=== PATIENT | male | born 1960 | race Caucasian/White ===

== ENCOUNTER 2020-09-23 18:25 | Emergency (ER) | payer OTHER, SELFPAY ==
--- NOTE | ~2020-09-23 | CT_ITS ---
EXAMINATION: CT brain wo con INDICATION: Left facial numbness COMPARISON: None TECHNIQUE: Standard unenhanced head CT. The dose-length product (DLP) was 605.33 mGy-cm. The mA was a djusted according to patient size. Iterative reconstruction technique was employed. FINDINGS: There is no intracranial hemorrhage, acute infarction, or abnormal mass lesion. The ventric les are normal. There is no abnormal mass effect or midline shift. The vazquez-white matter differentiat ion is normal. The basal cisterns are patent. The orbits are normal. The paranasal sinuses, mastoids and calvarium are normal. IMPRESSION: 1. No acute intracranial abnormality. Reviewed, dictated and finalized at location A.
--- NOTE | ~2020-09-23 | XR_ITS ---
EXAMINATION: XR chest 1V INDICATION: Left-sided facial numbness TECHNIQUE: AP view of the chest is obtained. COMPARISON: 11/12/2016 FINDINGS: The lungs are free of acute opacities. There is no pleural effusion or pneumothorax. The ca rdiomediastinal silhouette is normal. The visualized osseous structures are unremarkable. IMPRESSION: 1. No acute cardiopulmonary abnormality. Reviewed, dictated and finalized at location A.
[2020-09-23 18:39] VITALS: BP 190/86; PULSE 77; RESP 16; TEMP 36.8; O2SAT 97
--- NOTE | 2020-09-23 18:44 | ECG_ITS ---
Measurements Intervals [place] Rate: 71 P: 39 WV: 174 QRS: -9 QRSD: 100 T: 31 QT: 369 QTc: 403 Interpretive Statements SINUS RHYTHM DELAYED PRECORDIAL R/S TRANSITION BASELINE ARTIFACT- II, AVF, V3-V6 BORDERLINE ECG Electronically Signed On 09-24-2020 6:21:[address] Mendoza D[address]O.
--- NOTE | 2020-09-23 18:49 | PC.NURSE ---
Patient to CT at this time.
[2020-09-23 19:33] LABS: Basophils Percent Auto 0.3 % (0.2-1.2); Eosinophils Absolute Auto 0.4 K/mm3 (0-0.3); Hematocrit 46.1 % (42.0-52.0); Hemoglobin 15.6 g/dL (14.0-18.0); Immature Granulocyte Absolute 0.04 K/mm3 (0.00-0.031); Immature Granulocyte Percent A 0.4 % (0-0.5); Lymphocytes Absolute Auto 1.92 K/mm3 (0.9-3.2); Lymphocytes Percent Auto 18.9 % (18.3-44.2); Mean Corpuscular HGB Conc 33.8 g/dl (32-36); Mean Corpuscular Hemoglobin 29.3 pg (26-34); Mean Corpuscular Volume 86.5 fl (80-100); Mean Platelet Volume 9.8 fl (7.4-10.4); Monocytes Absolute Auto 0.6 K/mm3 (0.1-0.6); Monocytes Percent Auto 5.6 % (2.6-8.5); Neutrophils Absolute Auto 7.2 K/mm3 (1.3-6.7); Neutrophils Percent Auto 70.8 % (45.5-73.1); Platelet Count Result 231 k/mm3 (150-375); Red Blood Count 5.33 M/mm3 (4.6-6.20); White Blood Count 10.2 K/mm3 (4.5-10.0)
[2020-09-23 19:43] LABS: Alanine Aminotransferase 52 U/L (4-50); Albumin Level 4.3 g/dL (3.5-5.1); Alkaline Phosphatase 55 U/L (38-126); Anion Gap 7 mmol/L (8-16); Aspartate Amino Transferase 45 U/L (17-59); Bilirubin,Total 0.5 mg/dL (0.2-1.3); Blood Urea Nitrogen 14 mg/dL (9-20); Calcium 9.5 mg/dL (8.4-10.2); Carbon Dioxide 29 mmol/L (22-30); Chloride 103 mmol/L (98-107); Estimated CRCL calculation 53 ml/min; Estimated Glomerular Filt Rate 57; Glucose 125 mg/dL (75-110); Partial Thromboplastin Time 24.6 SECONDS (22.3-36.8); Potassium 3.8 mmol/L (3.4-5.0); Prothrombin Time 13.4 Seconds (11.1-14.7); Sodium 139 mmol/L (137-145)
[2020-09-23 19:54] LABS: Troponin I < 0.012 ng/mL (0.000-0.034)
[2020-09-23 19:56] VITALS: BP 142/81; PULSE 82; RESP 16; TEMP 36.6; O2SAT 97
[2020-09-23 21:52] VITALS: BP 139/79; PULSE 79; RESP 18; TEMP 36.6; O2SAT 97
--- NOTE | 2020-09-23 22:00 | ED.GENADULT ---
HPI - General Adult General Chief complaint: Neuro Symptoms/Deficit Stated complaint: left sided facial numbness Time Seen by Provider: 09/23/20 18:29 History of Present Illness HPI narrative: Patient is a 60-year-old male who presents ER with left facial tingling. Onset 4 to 5 months prior to arrival. Has had this 2 times over the last week. Typically does not last longer than 15 minutes. Today it lasted longer. No facial droop or slurred speech. No affected extremities. Reports he has been under increased stress lately due to the loss of a family member. This makes him tearful and anxious. Denies chest pain or chest pressure. No history of previous CVA. Reports he has had some intermittent ringing in his right ear that he thinks is related to allergies as it seems to improve when he takes allergy medication. Related Data Home Medications Medication Instructions Recorded Confirmed atorvastatin 20 mg tablet 20 mg PO DAILY 05/10/20 fluticasone furoate 50 INHALATION 05/10/20 mcg/actuation blister powder for inhalation aspirin See Rx Instructions .ROUTE .COMPLEX 09/23/20 lorazepam 09/23/20 montelukast mg 09/23/20 Allergies Allergy/AdvReac Type Severity Reaction Status Date / Time No Known Allergies Allergy Unknown Verified 09/23/20 18:46 Review of Systems Review of Systems: All systems reviewed & are unremarkable except as noted in HPI and below Constitutional: Constitutional: Denies chills, Denies fever(s) and Denies weakness ENT: Denies nasal congestion and Denies sore throat Cardiovascular: Cardiovascular: Denies chest pain, Denies rapid heart rate and Denies radiating jaw, neck or arm pain PMFSH Past Medical History Medical History (Updated 09/23/20 @ 22:06 by Monty Woo MD) Anxiety Hypercholesterolemia Meniere disease Tinnitus of right ear Surgical History Surgical History (Updated 09/23/20 @ 22:03 by Monty Woo MD) No pertinent past surgical history Social History Social History (Updated 05/10/20 @ 15:22 by Nerissa Tyler CMA) Smoking status: Never smoker Second hand tobacco smoke exposure: Yes Alcohol intake: current Substance use: never Substance use type: does not use Exam Narrative: Exam Narrative: GENERAL: Well-appearing, well-nourished, and in no acute distress. HEAD: Normocephalic, atraumatic. EYES: PERRL and EOMI. ENT: Mucous membranes moist. TMs normal bilaterally. CHEST: Clear to auscultation. No respiratory distress. HEART: Regular rate and rhythm. Normal peripheral pulses. ABDOMEN: Soft, nontender, nondistendeds. EXTREMITIES: Normal range of motion. No edema. SKIN: Warm, dry, no rash. NEURO: No focal deficits. Upper or lower extremity drift. No reproducible sensory deficit to the face or extremities. No expressive aphasia or dysarthria. Normal hyca-hk-guoh and azjwsb-re-jqoi testing. Alert and oriented x3. PSYCH: Normal mood and affect but cries when talked about his brother. Course Course Emergency Course: No discernible deficits on exam. Reports tingling went away shortly after arrival. May be related transiently elevated blood pressures. Recommend follow-up with PCP and daily aspirin. Vital Signs Vital signs: Vital Signs Temperature 98.2 F 09/23/20 18:39 Pulse Rate 77 09/23/20 18:39 Respiratory Rate 16 09/23/20 18:39 Blood Pressure 190/86 H 09/23/20 18:39 Pulse Oximetry 97 09/23/20 18:39 Temperature 97.9 F 09/23/20 21:52 Pulse Rate 79 09/23/20 21:52 Respiratory Rate 18 09/23/20 21:52 Blood Pressure 139/79 09/23/20 21:52 Pulse Oximetry 97 09/23/20 21:52 Medical Decision Making Vital Signs Vital Signs: Vital Signs Temperature 98.2 F 09/23/20 18:39 Pulse Rate 77 09/23/20 18:39 Respiratory Rate 16 09/23/20 18:39 Blood Pressure 190/86 H 09/23/20 18:39 Pulse Oximetry 97 09/23/20 18:39 Temperature 97.9 F 09/23/20 21:52 Pulse Rate 79 05/
== END 2020-09-23 22:14 | disposition home or self-care (01) ==
PROVIDERS: Emergency Provider Emergency Medicine; PCP Internal Medicine
DX: R20.2 Paresthesia of skin (principal); E78.00 Pure hypercholesterolemia, unspecified; H81.09 Meniere's disease, unspecified ear; Z79.82 Long term (current) use of aspirin; F41.9 Anxiety disorder, unspecified
CPT/HCPCS: 36415; 70450; 71045; 80053; 84484; 85025; 85610; 85730; 93005; 99284

== ENCOUNTER 2024-02-27 02:41 | Emergency (ER) | payer BC, SELFPAY ==
--- NOTE | ~2024-02-27 | XR_ITS ---
EXAMINATION: XR chest 2V DATE: 02/27/2024 03:22 INDICATION: Epigastric abdominal pain. TECHNIQUE: Frontal and lateral views of the chest were obtained. COMPARISON: Chest single view 09/23/2020 FINDINGS: There is no pneumonia, pleural effusion, or pneumothorax. The heart size is normal. IMPRESSION: 1. No acute cardiopulmonary disease. Reviewed, dictated and finalized at location A.
--- NOTE | 2024-02-27 02:43 | ECG_ITS ---
Test Date: 2024-02-27 02:47:05 Measurements Intervals [place] Rate: 79 P: 42 [place]: 172 QRS: -18 QRSD: 90 T: 61 QT: 365 QTc: 419 Interpretive Statements SINUS RHYTHM No previous ECG available for comparison Electronically Signed On 02-27-2024 15:32:39 CDT by Addy Sood M.D.
[2024-02-27 02:52] VITALS: BP 178/80; PULSE 84; RESP 16; TEMP 36.7; O2SAT 99
[2024-02-27] MEDS: FAMOTIDINE 20 MG TABLET PO (03:03)
[2024-02-27 03:13] LABS: Basophils Percent Auto 0.4 % (0.2-1.2); Eosinophils Absolute Auto 0.4 K/mm3 (0-0.3); Eosinophils Percent Auto 4.6 % (0-4.4); Hematocrit 43.4 % (42.0-52.0); Hemoglobin 14.9 g/dL (14.0-18.0); Immature Granulocyte Absolute 0.02 K/mm3 (0.00-0.031); Immature Granulocyte Percent A 0.3 % (0-0.5); Lymphocytes Absolute Auto 1.77 K/mm3 (0.9-3.2); Lymphocytes Percent Auto 23.2 % (18.3-44.2); Mean Corpuscular HGB Conc 34.3 g/dl (32-36); Mean Corpuscular Hemoglobin 29.6 pg (26-34); Mean Corpuscular Volume 86.3 fl (80-100); Mean Platelet Volume 10.1 fl (7.4-10.4); Monocytes Absolute Auto 0.6 K/mm3 (0.1-0.6); Monocytes Percent Auto 7.7 % (2.6-8.5); Neutrophils Absolute Auto 4.9 K/mm3 (1.3-6.7); Neutrophils Percent Auto 63.8 % (45.5-73.1); Platelet Count Result 232 k/mm3 (150-375); Red Blood Count 5.03 M/mm3 (4.6-6.20); Red Cell Distribution Width 13.3 % (11.5-14.5); White Blood Count 7.6 K/mm3 (4.5-10.0)
[2024-02-27 03:28] LABS: Alanine Aminotransferase 45 U/L (6-50); Alkaline Phosphatase 61 U/L (38-126); Anion Gap 5 mmol/L (4-12); Aspartate Amino Transferase 37 U/L (17-59); Bilirubin,Total 0.5 mg/dL (0.2-1.3); Blood Urea Nitrogen 13 mg/dL (9-20); Calcium 8.6 mg/dL (8.4-10.2); Carbon Dioxide 28 mmol/L (22-30); Chloride 104 mmol/L (98-107); Estimated CRCL calculation 69 ml/min; Estimated Glomerular Filt Rate > 60; Glucose 128 mg/dL (65-110); Lipase 154 U/L (23-300); Potassium 3.6 mmol/L (3.4-5.0); Sodium 137 mmol/L (137-145)
[2024-02-27 03:40] LABS: Troponin I < 0.012 ng/mL (0.000-0.034)
--- NOTE | 2024-02-27 03:53 | ED.ABDPAIN ---
HPI - Abdominal Pain General Chief Complaint: Abdominal Pain Stated Complaint: anxiety/LUQ discomfort Time Seen by Provider: 02/27/24 02:53 Source: patient Mode of arrival: ambulatory Limitations: no limitations History of Present Illness HPI narrative: This is a 63-year-old male, with history of anxiety, who presents emergency department complaining of epigastric abdominal pain beginning approximately 4 hours prior to arrival. The patient states he has been under increased stress lately related to work as well as the loss some family members. The patient was attempting to sleep, when he felt a mild pressure-like sensation in the upper abdomen associated with some nausea. He denied other chest pain, shortness of breath, loss of consciousness or cold sweats. He states he also took a viral mg tablet of amoxicillin, Ativan and 2 baby aspirin today. He has no other complaints at this time. Related Data Home Medications Medication Instructions Recorded Confirmed atorvastatin 20 mg tablet 20 mg PO DAILY 05/10/20 fluticasone furoate 50 inhalation 05/10/20 mcg/actuation blister powder for inhalation aspirin 81 mg tablet See Rx Instructions .Route .COMPLEX 09/23/20 lorazepam 1 mg tablet 09/23/20 montelukast 10 mg tablet mg 09/23/20 Allergies Allergy/AdvReac Type Severity Reaction Status Date / Time No Known Allergies Allergy Unknown Verified 02/27/24 02:42 Review of Systems Review of Systems: All systems reviewed & are unremarkable except as noted in HPI and below PMFSH Past Medical History Medical History Anxiety Hypercholesterolemia Meniere disease Tinnitus of right ear Surgical History Surgical History No pertinent past surgical history Social History Social History Smoking status: Never smoker Second hand tobacco smoke exposure: Yes Alcohol intake: current Substance use: never Substance use type: does not use Exam Narrative: GENERAL: Well-developed, well-nourished, and in no acute distress. HEAD: Normocephalic, atraumatic. EYES: PERRLA and EOMI. CHEST: Clear to auscultation. No respiratory distress. No wheezes rales or rhonchi HEART: Regular rate and rhythm. No murmur heard. Normal peripheral pulses. ABDOMEN: Soft, nontender, nondistended, normal active bowel sounds. EXTREMITIES: Normal range of motion. No edema. SKIN: Warm, dry, no rash. NEURO: Alert and oriented x3. No focal deficit. Moving all 4 limbs spontaneously PSYCH: Normal mood and affect. Course Course Emergency Course: 03:55 - EKG unremarkable. Troponin negative. Heart score 2. I do not suspect ACS. Chemistries demonstrate mildly elevated glucose of 128 but is otherwise unremarkable. CBC unremarkable. Chest x-ray by my review negative. Lipase 154. On re-evaluation, the patient has no complaints. I suspect GERD versus pill esophagitis as the cause of his discomfort. Will discharge with a PPI and recommendation for primary care follow-up. I discussed the findings and recommendations with the patient. Discussed return and emergency precautions including signs/symptoms of ACS and respiratory distress. The patient voiced understanding and agreement with the plan. All questions answered to his satisfaction. Vital Signs Vital signs: Vital Signs Temperature 98.1 F 02/27/24 02:52 Pulse Rate 84 02/27/24 02:52 Respiratory Rate 16 02/27/24 02:52 Blood Pressure 178/80 H 02/27/24 02:52 Pulse Oximetry 99 02/27/24 02:52 Oxygen Delivery Room Air 02/27/24 02:52 Temperature 98.1 F 02/27/24 02:52 Pulse Rate 84 02/27/24 02:52 Respiratory Rate 16 02/27/24 02:52 Blood Pressure 178/80 H 02/27/24 02:52 Pulse Oximetry 99 02/27/24 02:52 Oxygen Delivery Room Air 02/27/24 02:52 MDM - Abdominal Pain MDM Narrative Medical decision making narrative: Plan: EKG, labs, troponin, pain control, reassess Differential Diagnosis Differential diagnosis: Likely pancreatitis and other (ACS, anxiety, gastritis, GERD, metabolic abnormality, other) Lab Data 02/27/24 03:06 02/27/24 03:06 Labs: Lab Results 02/27/24 Range/Units 03:06 WBC 7.6 (4.5-10.0) K/mm3 RBC 5.03 (4.6-6.20) M/mm3 Hgb 14.9 (14.0-18.0) g/dL Hct 43.4 (42.0-52.0) % MCV 86.3 (80-100) fl MCH 29.6 (26-34) pg MCHC 34.3 (32-36) g/dl RDW 13.3 (11.5-14.5) % Plt Count 232 (150-375) k/mm3 MPV 10.1 (7.4-10.4) fl Immature Gran % (Auto) 0.3 (0-0.5) % Neut % (Auto) 63.8 (45.5-73.1) % Lymph % (Auto) 23.2 (18.3-44.2) % Clark % (Auto) 7.7 (2.6-8.5) % Eos % (Auto) 4.6 H (0-4.4) % Baso % (Auto) 0.4 (0.2-1.2) % Lymph # (Auto) 1.77 (0.9-3.2) K/mm3 Clark # (Auto) 0.6 (0.1-0.6) K/mm3 Eos # (Auto) 0.4 H (0-0.3) K/mm3 Baso # (Auto) 0.0 (0.0-0.1) K/mm3 Abs Immat Gran (auto) 0.02 (0.00-0.031) K/mm3 Absolute Neuts (auto) 4.9 (1.3-6.7) K/mm3 Absolute Nucleated RBC 0.000 (0.0-0.012) K/mm3 Nucleated RBC % 0.0 (0.0-0.2) % Sodium 137 (137-145) mmol/L Potassium 3.6 (3.4-5.0) mmol/L Chloride 104 (98-107) mmol/L Carbon Dioxide 28 (22-30) mmol/L Anion Gap 5 (4-12) mmol/L BUN 13 (9-20) mg/dL Creatinine 1.10 (0.7-1.3) mg/dL Estim Creat Clear Calc 69 ml/min Estimated GFR > 60 (59 - ) Glucose 128 H (65-110) mg/dL Calcium 8.6 (8.4-10.2) mg/dL Total Bilirubin 0.5 (0.2-1.3) mg/dL AST 37 (17-59) U/L ALT 45 (6-50) U/L Alkaline Phosphatase 61 (38-126) U/L Troponin I < 0.012 (0.000-0.034) ng/mL Total Protein 7.0 (6.3-8.2) g/dL Albumin 4.0 (3.5-5.1) g/dL Lipase 154 (23-300) U/L ECG Data EKG #1: Attestation: I personally reviewed and interpreted this ECG as follows: ECG completion date: 02/27/24 ECG completion time: 02:47 Prior ECG tracings: not available for review Interpretation: Sinus rhythm, rate 79, normal axis, no ST segment elevations or T-wave inversions concerning for ischemia, normal intervals with QTC of 419. Discharge Plan Discharge Clinical Impression: Abdominal pain, epigastric Patient Disposition: Home, Self-Care Condition: Stable Instructions: Antibiotic Form, Abdominal Pain (ED) Additional Instructions: You were seen in the emergency department. Your EKG and labs are not concerning for injury to the heart. Your labs are also not concerning for liver or kidney injury. A chest x-ray was unremarkable. I suspect your pain is related to gastritis. I recommend a oral acid blocking medication and follow-up with your primary care doctor. If you develop new or worsening chest pain, shortness of breath, persistent vomiting, fevers with abdominal pain, or if you have other emergent concerns for life, limb, or eyesight, return to the emergency department. Patient Language: [place] Prescriptions: New omeprazole 40 mg capsule,delayed release(DR/EC) 40 mg PO DAILY Qty: 30 0RF No Action atorvastatin 20 mg tablet 20 mg PO DAILY fluticasone furoate 50 mcg/actuation blister with device inhalation montelukast 10 mg tablet aspirin 81 mg Tablet See Rx Instructions .ROUTE .COMPLEX Rx Instructions: 81 mg orally once every 3 days lorazepam 1 mg tablet aspirin 325 mg tablet 325 mg PO DAILY Qty: 20 0RF Follow-up/Referrals: Gibson,MD Anish [Primary Care Provider] - 2 Weeks Time of Disposition: 04:00
[2024-02-27 04:23] VITALS: BP 134/86; PULSE 67; RESP 15; O2SAT 100
== END 2024-02-27 04:23 | disposition home or self-care (01) ==
PROVIDERS: Emergency Provider Preventive Medicine Aerospace Medicine; PCP Internal Medicine
DX: R10.13 Epigastric pain (principal); E78.00 Pure hypercholesterolemia, unspecified
CPT/HCPCS: 36415; 71046; 80053; 83690; 84484; 85025; 93005; 99284; A9270

== ENCOUNTER 2024-05-14 00:38 | Day surgery (SDC) | payer OTHER, SELFPAY ==
[2024-04-29 10:49] VITALS: BMI 30.2
[2024-05-14 08:39] VITALS: BP 155/75; PULSE 66; RESP 18; TEMP 36.1; O2SAT 96
[2024-05-14] MEDS: LACTATED RINGERS 1,000 ML 150 ML IV CONT (08:48)
--- NOTE | 2024-05-14 09:01 | P.PNAN_ITS ---
Anes - Initial Pre Proc Eval Procedure: Operation Date: 05/14/24 09:30 Proposed Procedures p Screening Colonoscopy - Lc Mcknight MD Date/Time: 05/14/24 09:01 Surgeon: Lc Mcknight MD Pre Op Diagnosis: screening colonoscopy Patient Data Age: 63 Gender: M Height: 1.73 m Weight: 88.3 kg Last Vital Signs Temp 96.9 F L 05/14/24 08:39 Pulse 66 05/14/24 08:39 Resp 18 05/14/24 08:39 BP 155/75 H 05/14/24 08:39 Pulse Ox 96 05/14/24 08:39 O2 Del Method Room Air 05/14/24 08:39 Allergies Allergy/AdvReac Type Severity Reaction Status Date / Time No Known Allergies Allergy Unknown Verified 05/14/24 08:35 Home Medications ?Medication ?Instructions ?Recorded ?Confirmed ?Type atorvastatin 20 mg tablet 20 mg PO DAILY 05/10/20 05/14/24 History fluticasone furoate 50 1 inh inhalation DAILY 05/10/20 05/14/24 History mcg/actuation blister powder for inhalation aspirin 325 mg tablet 325 mg PO DAILY #20 tabs 09/23/20 05/14/24 Rx aspirin 81 mg tablet See Rx Instructions .Route .COMPLEX 09/23/20 05/14/24 History lorazepam 1 mg tablet 1 mg PO DAILY PRN anxiety 09/23/20 04/29/24 History montelukast 10 mg tablet 10 mg PO DAILY 09/23/20 05/14/24 History omeprazole 40 mg capsule,delayed 40 mg PO DAILY #30 caps 02/27/24 05/14/24 Rx release Patient hx anesthesia problems: none Family hx anesthesia problems: none Results Review: All pre-operative results and documents have been reviewed as part of the pre- operative evaluation. [facility] Past Medical History Medical History Anxiety Hypercholesterolemia Meniere disease Tinnitus of right ear Surgical History Surgical History No pertinent past surgical history Social History Social History Smoking status: Never smoker Second hand tobacco smoke exposure: Yes Alcohol intake: current Substance use: never Substance use type: does not use Living arrangements: alone Spiritual care concerns: No Anes - Eval Final PreProcedure Day of Procedure 05/14/24 09:01 Patient weight: normal Heart: regular rate and rhythm Lungs: clear to auscultation Airway: Mallampati scale class II Neurological: alert and oriented Last oral intake: >/= 8 hours ASA classification: II Emergent: no Anesthetic plan: proceed Anesthesia type and monitoring: general GIVS and standard monitoring Results Review: All pre-operative results and documents have been reviewed as part of the pre- operative evaluation. Informed Consent: The patient's anesthetic plan and its attendant risks and benefits were discussed with the patient/family/POA. Questions were solicited and answers provided to the satisfaction of the patient/family/POA.
--- NOTE | 2024-05-14 09:23 | PM.HPGS ---
History of Present Illness History of Present Illness Consent: Risks, benefits, and alternatives have been discussed and questions answered. Patient agrees to proceed with procedure. Chief complaint: screening colonoscopy Narrative: Yaya Terrazas is a 63 year old male here for colonoscopy, last one 10 years ago Review of Systems Review of Systems: All systems reviewed & are unremarkable except as noted in HPI and below PMFSH Past Medical History Medical History (Updated 05/14/24 @ 09:23 by Lc Mcknight MD) Colon cancer screening Anxiety Hypercholesterolemia Meniere disease Tinnitus of right ear Surgical History Surgical History No pertinent past surgical history Social History Social History Smoking status: Never smoker Second hand tobacco smoke exposure: Yes Alcohol intake: current Substance use: never Substance use type: does not use Living arrangements: alone Spiritual care concerns: No Meds Home Medications and Allergies Home Medications ?Medication ?Instructions ?Recorded ?Confirmed ?Type atorvastatin 20 mg tablet 20 mg PO DAILY 05/10/20 05/14/24 History fluticasone furoate 50 1 inh inhalation DAILY 05/10/20 05/14/24 History mcg/actuation blister powder for inhalation aspirin 325 mg tablet 325 mg PO DAILY #20 tabs 09/23/20 05/14/24 Rx aspirin 81 mg tablet See Rx Instructions .Route .COMPLEX 09/23/20 05/14/24 History lorazepam 1 mg tablet 1 mg PO DAILY PRN anxiety 09/23/20 04/29/24 History montelukast 10 mg tablet 10 mg PO DAILY 09/23/20 05/14/24 History omeprazole 40 mg capsule,delayed 40 mg PO DAILY #30 caps 02/27/24 05/14/24 Rx release Allergies Allergy/AdvReac Type Severity Reaction Status Date / Time No Known Allergies Allergy Unknown Verified 05/14/24 08:35 Vital Signs Vital Signs - 24 hr 05/14/24 08:39 Temperature 96.9 F L Pulse Rate 66 Respiratory Rate 18 Blood Pressure 155/75 H Pulse Oximetry 96 Oxygen Delivery Room Air Exam Const: General: comfortable and no acute distress HENMT: Face/Nose/Sinus: Normal nares present Eyes: General: appearance normal, both eyes and all related structures Neck: Neck: no JVD Resp: Auscultation: clear to auscultation bilaterally Cardio: Rate: regular rate Rhythm: regular rhythm GI: Inspection: non-distended GI Palp: Yes Soft to palpation Skin: General skin exam: normal color Neuro: General: gait normal Speech: normal speech Extrem: General: normal to inspection Psych: Mental Status: mental status grossly normal Assessment and Plan Assessment and plan (1) Colon cancer screening: Code(s): Z12.11 - Encounter for screening for malignant neoplasm of colon Status: Acute Assessment and Plan: colonoscopy
[2024-05-14 09:34] VITALS: BP 110/58; PULSE 74; RESP 18; O2SAT 95
[2024-05-14 09:44] VITALS: BP 105/63; PULSE 76; RESP 18; O2SAT 97
[2024-05-14 09:54] VITALS: BP 105/63; PULSE 71; RESP 18; O2SAT 97
== END 2024-05-14 10:15 | disposition home or self-care (01) ==
PROVIDERS: PCP Internal Medicine; Visit Provider Internal Medicine Gastroenterology
PROC: 0DJD8ZZ Inspection of Lower Intestinal Tract, Via Natural or Artificial Opening Endoscopic (ICD-10-PCS; CPT 45378; principal; 2024-05-14 09:30)
DX: Z12.11 Encounter for screening for malignant neoplasm of colon (principal); D12.5 Benign neoplasm of sigmoid colon; K64.8 Other hemorrhoids; K57.30 Diverticulosis of large intestine without perforation or abscess without bleeding; F41.9 Anxiety disorder, unspecified; E78.00 Pure hypercholesterolemia, unspecified; Z79.51 Long term (current) use of inhaled steroids; Z79.82 Long term (current) use of aspirin
CPT/HCPCS: 45380; 88305; J2704; J7120

== ENCOUNTER 2024-06-18 08:04 | Outpatient (CLI) | payer OTHER, SELFPAY ==
--- NOTE | 2024-06-18 | EST_ITS ---
Patient Info Name: Yaya Terrazas Age: 64 years : 1960 Gender: Male Ht: 68 in Wt: 195 lbs BSA: 2.08 m2 HR: 64 bpm BP: 123 / 74 mmHg Exam Date: 06/18/2024 9:02 AM Exam Location: [facility] Patient Status: Outpatient Admit Date: 06/18/2024 Staff Ordering Physician: Gibson, Anish ADEN Attending Provider: Gibson, Anish ADEN Exercise Technologist: Krupa Estes [facility] Exercise Physician: Rd Mendoza DO Exam Type: CA stress jaden w NM Study Info A regadenoson stress test was performed. Summary 1. 1. Negative lexiscan stress test for ischemic ST changes by ECG criteria. 2. 2. Stable hemodynamics throughout the test. 3. 3. Nuclear scan to follow and will be reported separately. Please correlate with it. 4. 4. Patient informed of the above results. Protocol: Lexiscan Stress ECG Details Stage: REST Duration (min): 1 min : 15 sec HR (bpm): 64 SBP (mmHg): 123 DBP (mmHg): 74 Stage: REST Duration (min): 4 min : 32 sec HR (bpm): 64 SBP (mmHg): 123 DBP (mmHg): 74 Stage: STAGE 1 Duration (min): 0 min : 59 sec HR (bpm): 92 SBP (mmHg): 148 DBP (mmHg): 62 Stage: RECOVERY Duration (min): 1 min : 0 sec HR (bpm): 86 SBP (mmHg): 148 DBP (mmHg): 62 Stage: RECOVERY Duration (min): 2 min : 0 sec HR (bpm): 82 SBP (mmHg): 148 DBP (mmHg): 62 Stage: RECOVERY Duration (min): 3 min : 0 sec HR (bpm): 80 SBP (mmHg): 143 DBP (mmHg): 68 Stage: RECOVERY Duration (min): 3 min : 6 sec HR (bpm): 79 SBP (mmHg): 143 DBP (mmHg): 68 Rest HR: 64 bpm Peak HR: 94 bpm Rest Sys BP: 123 mmHg Peak Sys BP: 148 mmHg Max Pred HR: 157 bpm % Max Pred HR: 60 % Target HR: 133 bpm Max RPP: 13,912 bpm*mmHg Termination Reason: Completed protocol Cardiac Symptoms: Shortness of breath Total Time: 1 min : 0 sec Rest Ellis BP: 74 mmHg Peak Ellis BP: 62 mmHg Total Dose: 0.4 mg Resting ECG Sinus rhythm. Stress ECG No ST changes. Arrhythmias None. Report Signatures
--- NOTE | ~2024-06-18 | NM_ITS ---
EXAMINATION: NM jaden stress w perfusion DATE: 06/18/2024 09:57 INDICATION: Chest pain. TECHNIQUE: Rest images were obtained following intravenous administration of 10.9 mCi Tc99m tetrofosm in (Myoview). The patient was infused intravenously with Lexiscan (regadenoson). Then, 34.9 mCi Tc99m tetrofosmin (Myoview) was administered intravenously, and stress images were obtained. Data was tram nstructed into short axis and horizontal and vertical long axis SPECT images. Gated SPECT images were also obtained. COMPARISON: None. FINDINGS: There is no definite reversible or fixed perfusion abnormality to suggest ischemia or infar ction. There is no segmental wall motion abnormality. Left ventricular ejection fraction measures 6 2%. IMPRESSION: 1. No definite ischemia or infarct. 2. Normal left ventricular ejection fraction measuring 62%. Reviewed, dictated and finalized at location A. STRIAL ACCOUNTANT
--- OUTSIDE RECORDS SUMMARY | 2024-06-18 08:08 | XMS_ITS | Data Portability ---
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 Phone PETER ARREAGA Primary Care Provider Assessment Encounter Date Assessment Date Assessment LastModified by Organization Details LastModified Time 08/26/2023 08/26/2023 Colonoscopy obtain last CAT scan that was done of abdomen follow-up 4 months low-fat diet [email or web address] Not available 08/31/2023 17:57:40 12/31/2023 12/31/2023 blood work colonoscopy we will set him up with coronary calcium scoring we will give the number that was discussed so far as being proactive for heart disease as well as healthy lifestyle choices and see me in 6 months [email or web address] Not available 01/10/2024 14:27:53 04/26/2024 04/26/2024 cardiac evaluation with Lexiscan Cardiolite stress test healthy lifestyle care instructions lorazepam 1 mg daily p.r.n. for anxiety CBC CMP lipid PSA see me back in 1 month [email or web address] Not available 05/08/2024 23:46:46 05/31/2024 05/31/2024 get stress test done get blood work done healthy lifestyle care instructions GERD omeprazole chest pain get Lexiscan no ongoing pain noted. Anxiety just lost a brother lorazepam. I would like to see him back in 4 months refuses flu shot refuses pneumococcal vaccination [email or web address] Not available 06/06/2024 14:36:30 Plan of Treatment Reminders Order Date Submit Date Provider Last Modified By Organization Details Last Modified Time Details Appointments ANY 15 2024 03:00P Nesha Arreaga MD Not available Not available Not available Lab CBC w/ auto diff 2023 024 [place] [facility], [address], [place], [address], 06/03/2024 07:08:53 CMP, serum or plasma 2023 024 [facility], [address], [place], [address], 06/03/2024 07:08:52 lipid panel, serum 2023 024 [place] [facility], [address], [place], [address], 06/03/2024 07:08:51 CBC w/ auto diff 2023 024 [facility], [address], [place], [address], 01/01/2024 10:15:55 CMP, serum or plasma 2023 024 [facility], [address], [place], [address], 01/01/2024 10:15:54 lipid panel, serum 2023 024 [facility], [address], [place], [address], 01/01/2024 10:15:53 Referral None recorded. Procedures lexiscan cardiolit e stress test (PROC) [address] ([facility]), [address], [place], [address], 2024 08:46:11 colonosco py screening (PROC) 2023 024 [facility], [address], [id number], [place], [address], 05/31/2024 16:16:33 Surgeries None recorded. Imaging None recorded. Medication Orders None recorded. Patient TargetsNo targets recorded. Patient Instructions Encounter Date Encounter Id Patient Instructions Last Modified By Organization Details Last Modified Time 04/26/2024 [id number] A healthy lifestyle: care instructions Not available 04/26/2024 12:11:22 05/31/2024 [id number] A healthy lifestyle: care instructions Not available 05/31/2024 18:09:27 Reason for Referral None Reported. Results Created Date Observation Date Name Description Value Unit Range Abnormal Flag Note LastModifiedBy Organization Detail LastModifiedTime 12/31/1901/01/2024 LIPID PANEL cholesterol, total 202 mg/dL 100-19 9 above high normal Not Available [facility] [address] [place], [address], 01/01/2024 10:15:53 12/31/1901/01/2024 LIPID PANEL triglyceride s 177 mg/dL 0-149 above high normal Not Available [facility] ([facility] [address] [place], [address], 01/01/2024 10:15:53 12/31/19 24 01/01/2024 LIPID PANEL HDL cholesterol 36 mg/dL >39 below low normal Not Available [facility] ([facility] [address] [place], [address], 01/01/2024 10:15:53 12/31/1901/01/2024 LIPID PANEL VLDL cholesterol yuliya 32 mg/dL 5-40 Not Available [facility] [address] [place], [address], 01/01/2024 10:15:53 12/31/1901/01/2024 LIPID PANEL LDL chol calc ([facility]) 134 mg/dL 0-99 above high normal Not Available [facility] ([facility] [address] [place], [address], 01/01/2024 10:15:53 12/31/19 24 01/01/2024 COMP. METAB OLIC PANEL (14) glucose 104 mg/dL 70-99 above high normal Not Available [facility] ([facility] [address] [facility], [place], [address], 01/01/2024 10:15:54 12/31/19 24 01/01/2024 COMP. METAB OLIC PANEL (14) BUN 12 mg/dL 8-27 Not Available [facility] ([facility] [address] [place], [address], 01/01/2024 10:15:54 12/31/19 24 01/01/2024 COMP. METAB OLIC PANEL (14) creatinine 1.03 mg/dL 0.76-1 .27 Not Available [facility] ([facility] [address] [place], [address], 01/01/2024 10:15:54 12/31/19 24 01/01/2024 COMP. METAB OLIC PANEL (14) eGFR 82 mL/mi n/1.7 3 >59 Not Available [facility] ([facility] [address] [place], [address], 01/01/2024 10:15:54 12/31/19 24 01/01/2024 COMP. METAB OLIC PANEL (14) BUN/creatini ne ratio 12 10-24 Not Available [facility] [address] [place], [address], 01/01/2024 10:15:54 12/31/19 24 01/01/2024 COMP. METAB OLIC PANEL (14) sodium 140 mmol/ L 134-14 4 Not Available [facility] ([facility] [address] [place], [address], 01/01/2024 10:15:54 12/31/19 24 01/01/2024 COMP. METAB OLIC PANEL (14) potassium 4.7 mmol/ L 3.5-5. 2 Not Available [facility] ([facility] [address] [facility] [place], [address], 01/01/2024 10:15:54 12/31/19 24 01/01/2024 COMP. METAB OLIC PANEL (14) chloride 101 mmol/ L 96-106 Not Available [facility] [address] [facility] [place], [address], 01/01/2024 10:15:54 12/31/19 24 01/01/2024 COMP. METAB OLIC PANEL (14) carbon dioxide, total 26 mmol/ L Not Available [facility] ([facility] [address] [facility], [place], [address], 01/01/2024 10:15:54 12/31/19 24 01/01/2024 COMP. METAB OLIC PANEL (14) calcium 9.4 mg/dL 8.6-10 .2 Not Available [facility] [address] [facility], [place], [address], 01/01/2024 10:15:54 12/31/19 24 01/01/2024 COMP. METAB OLIC PANEL (14) protein, total 7.0 g/dL 6.0-8. 5 Not Available [facility] [address] [facility], [place], [address], 01/01/2024 10:15:54 12/31/19 24 01/01/2024 COMP. METAB OLIC PANEL (14) albumin 4.4 g/dL 3.9-4. 9 Not Available [facility] ([facility] [address] [facility] [place], [address], 01/01/2024 10:15:54 12/31/19 24 01/01/2024 COMP. METAB OLIC PANEL (14) globulin, total 2.6 g/dL 1.5-4. 5 Not Available [facility] ([facility] [address] [facility], [place], [address], 01/01/2024 10:15:54 12/31/19 24 01/01/2024 COMP. METAB OLIC PANEL (14) bilirubin, total 0.3 mg/dL 0.0-1. 2 Not Available [facility] [address] [facility], [place], [address], 01/01/2024 10:15:54 12/31/19 24 01/01/2024 COMP. METAB OLIC PANEL (14) alkaline phosphatase 64 IU/L 44-121 Not Available [facility] [address] [facility], [place], [address], 01/01/2024 10:15:54 12/31/19 24 01/01/2024 COMP. METAB OLIC PANEL (14) AST (SGOT) 29 IU/L 0-40 Not Available [facility] [address] [facility], [place], [address], 01/01/2024 10:15:54 12/31/19 24 01/01/2024 COMP. METAB OLIC PANEL (14) ALT (SGPT) 35 IU/L 0-44 Not Available [facility] [address] [facility], [place], [address], 01/01/2024 10:15:54 12/31/19 24 01/01/2024 CBC WITH DIFFE RENTI AL/PL ATELE T WBC 8.6 x10e3 /uL 3.4-10 .8 Not Available [facility] ([facility] [address] [facility], [place], [address], 01/01/2024 10:15:55 12/31/19 24 01/01/2024 CBC WITH DIFFE RENTI AL/PL ATELE T RBC 5.32 x10e6 /uL 4.14-5 .80 Not Available [facility] [address] [facility], [place], [address], 01/01/2024 10:15:55 12/31/19 24 01/01/2024 CBC WITH DIFFE RENTI AL/PL ATELE T hemoglobin 15.7 g/dL 13.0-1 7.7 Not Available [facility] [address] [facility], [place], [address], 01/01/2024 10:15:55 12/31/19 24 01/01/2024 CBC WITH DIFFE RENTI AL/PL ATELE T hematocrit 47.3 % 37.5-5 1.0 Not Available [facility] [address] [facility], [place], [address], 01/01/2024 10:15:55 12/31/19 24 01/01/2024 CBC WITH DIFFE RENTI AL/PL ATELE T MCV 89 fL 79-97 Not Available [facility] [address] [facility], [place], [address], 01/01/2024 10:15:55 12/31/19 24 01/01/2024 CBC WITH DIFFE RENTI AL/PL ATELE T MCH 29.5 pg 26.6-3 3.0 Not Available [facility] [address] [facility], [place], [address], 01/01/2024 10:15:55 12/31/19 24 01/01/2024 CBC WITH DIFFE RENTI AL/PL ATELE T MCHC 33.2 g/dL 31.5-3 5.7 Not Available [facility] [address] [facility], [place], [address], 01/01/2024 10:15:55 12/31/19 24 01/01/2024 CBC WITH DIFFE RENTI AL/PL ATELE T RDW 13.6 % 11.6-1 5.4 Not Available [facility]) [address], [place], [address], 01/01/2024 10:15:55 12/31/19 24 01/01/2024 CBC WITH DIFFE RENTI AL/PL ATELE T platelets 261 x10e3 /uL 150-45 0 Not Available [facility]) [address], [place], [address], 01/01/2024 10:15:55 12/31/19 24 01/01/2024 CBC WITH DIFFE RENTI AL/PL ATELE T neutrophils 61 % notest ab. Not Available [facility] [address] [facility], [place], [address], 01/01/2024 10:15:55 12/31/19 24 01/01/2024 CBC WITH DIFFE RENTI AL/PL ATELE T lymphs 27 % notest ab. Not Available [facility] ([facility] [address] [facility], [place], [address], 01/01/2024 10:15:55 12/31/19 24 01/01/2024 CBC WITH DIFFE RENTI AL/PL ATELE T monocytes 7 % notest ab. Not Available [facility] [address] [facility], [place], [address], 01/01/2024 10:15:55 12/31/19 24 01/01/2024 CBC WITH DIFFE RENTI AL/PL ATELE T eos 4 % notest ab. Not Available [facility] ([facility] [address] [facility], [place], [address], 01/01/2024 10:15:55 12/31/19 24 01/01/2024 CBC WITH DIFFE RENTI AL/PL ATELE T basos 1 % notest ab. Not Available [facility] ([facility] [address] [facility], [place], [address], 01/01/2024 10:15:55 12/31/19 24 01/01/2024 CBC WITH DIFFE RENTI AL/PL ATELE T neutrophils (absolute) 5.3 x10e3 /uL 1.4-7. 0 Not Available [facility] ([facility] [address] [place], [address], 01/01/2024 10:15:55 12/31/19 24 01/01/2024 CBC WITH DIFFE RENTI AL/PL ATELE T lymphs (absolute) 2.3 x10e3 /uL 0.7-3. 1 Not Available [facility] ([facility] [address] [place], [address], 01/01/2024 10:15:55 12/31/19 24 01/01/2024 CBC WITH DIFFE RENTI AL/PL ATELE T monocytes(ab solute) 0.6 x10e3 /uL 0.1-0. 9 Not Available [facility] ([facility] [address] [place], [address], 01/01/2024 10:15:55 12/31/19 24 01/01/2024 CBC WITH DIFFE RENTI AL/PL ATELE T eos (absolute) 0.3 x10e3 /uL 0.0-0. 4 Not Available [facility] ([facility] [address] [place], [address], 01/01/2024 10:15:55 12/31/19 24 01/01/2024 CBC WITH DIFFE RENTI AL/PL ATELE T baso (absolute) 0.0 x10e3 /uL 0.0-0. 2 Not Available [facility] ([facility] [address] [place], [address], 01/01/2024 10:15:55 12/31/19 24 01/01/2024 CBC WITH DIFFE RENTI AL/PL ATELE T immature granulocytes 0 % notest ab. Not Available [facility] [address] [place], [address], 01/01/2024 10:15:55 12/31/19 24 01/01/2024 CBC WITH DIFFE RENTI AL/PL ATELE T immature grans (abs) 0.0 x10e3 /uL 0.0-0. 1 Not Available [facility] ([facility] [address] [facility], [place], [address], 01/01/2024 10:15:55 06/02/19 25 06/03/2024 LIPID PANEL cholesterol, total 188 mg/dL 100-19 9 Not Available [facility] [address] [place], [address], 06/03/2024 07:08:50 06/02/19 25 06/03/2024 LIPID PANEL triglyceride s 165 mg/dL 0-149 above high normal Not Available [facility] [address] [place], [address], 06/03/2024 07:08:50 06/02/19 25 06/03/2024 LIPID PANEL HDL cholesterol 35 mg/dL >39 below low normal Not Available [facility] [address] [place], [address], 06/03/2024 07:08:50 06/02/19 25 06/03/2024 LIPID PANEL VLDL cholesterol yuliya 30 mg/dL 5-40 Not Available [facility] [address] [place], [address], 06/03/2024 07:08:50 06/02/19 25 06/03/2024 LIPID PANEL LDL chol calc ([facility]) 123 mg/dL 0-99 above high normal Not Available [facility] [address] [place], [address], 06/03/2024 07:08:50 06/02/19 25 06/03/2024 COMP. METAB OLIC PANEL (14) glucose 108 mg/dL 70-99 above high normal Not Available [facility] [address] [place], [address], 06/03/2024 07:08:52 06/02/19 25 06/03/2024 COMP. METAB OLIC PANEL (14) BUN 13 mg/dL 8-27 Not Available [facility] [address] [place], [address], 06/03/2024 07:08:52 06/02/19 25 06/03/2024 COMP. METAB OLIC PANEL (14) creatinine 0.98 mg/dL 0.76-1 .27 Not Available [facility] ([facility] [address] [place], [address], 06/03/2024 07:08:52 06/02/19 25 06/03/2024 COMP. METAB OLIC PANEL (14) eGFR 87 mL/mi n/1.7 3 >59 Not Available [facility] ([facility] [address] [place], [address], 06/03/2024 07:08:52 06/02/19 25 06/03/2024 COMP. METAB OLIC PANEL (14) BUN/creatini ne ratio 13 10-24 Not Available [facility] [address] [place], [address], 06/03/2024 07:08:52 06/02/19 25 06/03/2024 COMP. METAB OLIC PANEL (14) sodium 141 mmol/ L 134-14 4 Not Available [facility] [address] [place], [address], 06/03/2024 07:08:52 06/02/19 25 06/03/2024 COMP. METAB OLIC PANEL (14) potassium 4.6 mmol/ L 3.5-5. 2 Not Available [facility] [address] [place], [address], 06/03/2024 07:08:52 06/02/19 25 06/03/2024 COMP. METAB OLIC PANEL (14) chloride 103 mmol/ L 96-106 Not Available [facility] [address] [place], [address], 06/03/2024 07:08:52 06/02/19 25 06/03/2024 COMP. METAB OLIC PANEL (14) carbon dioxide, total 25 mmol/ L 20-29 Not Available [facility] [address] [place], [address], 06/03/2024 07:08:52 06/02/19 25 06/03/2024 COMP. METAB OLIC PANEL (14) calcium 8.9 mg/dL 8.6-10 .2 Not Available [facility] [address] [place], [address], 06/03/2024 07:08:52 06/02/19 25 06/03/2024 COMP. METAB OLIC PANEL (14) protein, total 6.5 g/dL 6.0-8. 5 Not Available [facility] [address] [place], [address], 06/03/2024 07:08:52 06/02/19 25 06/03/2024 COMP. METAB OLIC PANEL (14) albumin 4.1 g/dL 3.9-4. 9 Not Available [facility] ([facility] [address] [place], [address], 06/03/2024 07:08:52 06/02/19 25 06/03/2024 COMP. METAB OLIC PANEL (14) globulin, total 2.4 g/dL 1.5-4. 5 Not Available [facility] [address] [place], [address], 06/03/2024 07:08:52 06/02/19 25 06/03/2024 COMP. METAB OLIC PANEL (14) bilirubin, total 0.5 mg/dL 0.0-1. 2 Not Available [facility] [address] [facility], [place], [address], 06/03/2024 07:08:52 06/02/19 25 06/03/2024 COMP. METAB OLIC PANEL (14) alkaline phosphatase 58 IU/L 44-121 Not Available [facility] [address] [facility], [place], [address], 06/03/2024 07:08:52 06/02/19 25 06/03/2024 COMP. METAB OLIC PANEL (14) AST (SGOT) 22 IU/L 0-40 Not Available [facility] [address] [facility], [place], [address], 06/03/2024 07:08:52 06/02/19 25 06/03/2024 COMP. METAB OLIC PANEL (14) ALT (SGPT) 38 IU/L 0-44 Not Available [facility] [address] [facility], [place], [address], 06/03/2024 07:08:52 06/02/19 25 06/02/2024 CBC WITH DIFFE RENTI AL/PL ATELE T WBC 6.4 x10e3 /uL 3.4-10 .8 Not Available [facility] [address] [facility] [place], [address], 06/03/2024 07:08:53 06/02/19 25 06/02/2024 CBC WITH DIFFE RENTI AL/PL ATELE T RBC 5.42 x10e6 /uL 4.14-5 .80 Not Available [facility] [address] [facility], [place], [address], 06/03/2024 07:08:53 06/02/19 25 06/02/2024 CBC WITH DIFFE RENTI AL/PL ATELE T hemoglobin 15.8 g/dL 13.0-1 7.7 Not Available [facility] [address] [facility], [place], [address], 06/03/2024 07:08:53 06/02/19 25 06/02/2024 CBC WITH DIFFE RENTI AL/PL ATELE T hematocrit 46.8 % 37.5-5 1.0 Not Available [facility] [address] [place], [address], 06/03/2024 07:08:53 06/02/1906/02/2024 CBC WITH DIFFE RENTI AL/PL ATELE T MCV 86 fL 79-97 Not Available [facility] [address] [place], [address], 06/03/2024 07:08:53 06/02/1906/02/2024 CBC WITH DIFFE RENTI AL/PL ATELE T MCH 29.2 pg 26.6-3 3.0 Not Available [facility] [address] [place], [address], 06/03/2024 07:08:53 06/02/1906/02/2024 CBC WITH DIFFE RENTI AL/PL ATELE T MCHC 33.8 g/dL 31.5-3 5.7 Not Available [facility] [address] [place], [address], 06/03/2024 07:08:53 06/02/1906/02/2024 CBC WITH DIFFE RENTI AL/PL ATELE T RDW 13.9 % 11.6-1 5.4 Not Available [facility] [address] [place], [address], 06/03/2024 07:08:53 06/02/19 06/02/2024 CBC WITH DIFFE RENTI AL/PL ATELE T platelets 252 x10e3 /uL 150-45 0 Not Available [facility] [address] [facility], [place], [address], 06/03/2024 07:08:53 06/02/19 25 06/02/2024 CBC WITH DIFFE RENTI AL/PL ATELE T neutrophils 60 % notest ab. Not Available [facility] [address] [facility], [place], [address], 06/03/2024 07:08:53 06/02/1906/02/2024 CBC WITH DIFFE RENTI AL/PL ATELE T lymphs 28 % notest ab. Not Available [facility] [address] [facility], [place], [address], 06/03/2024 07:08:53 06/02/19 25 06/02/2024 CBC WITH DIFFE RENTI AL/PL ATELE T monocytes 6 % notest ab. Not Available [facility] [address] [facility], [place], [address], 06/03/2024 07:08:53 06/02/19 25 06/02/2024 CBC WITH DIFFE RENTI AL/PL ATELE T eos 5 % notest ab. Not Available [facility] [address] [facility], [place], [address], 06/03/2024 07:08:53 06/02/19 25 06/02/2024 CBC WITH DIFFE RENTI AL/PL ATELE T basos 1 % notest ab. Not Available [facility] [address] [facility], [place], [address], 06/03/2024 07:08:53 06/02/19 25 06/02/2024 CBC WITH DIFFE RENTI AL/PL ATELE T neutrophils (absolute) 3.9 x10e3 /uL 1.4-7. 0 Not Available [facility] [address] [facility], [place], [address], 06/03/2024 07:08:53 06/02/19 25 06/02/2024 CBC WITH DIFFE RENTI AL/PL ATELE T lymphs (absolute) 1.8 x10e3 /uL 0.7-3. 1 Not Available [facility] [address] [facility], [place], [address], 06/03/2024 07:08:53 06/02/19 25 06/02/2024 CBC WITH DIFFE RENTI AL/PL ATELE T monocytes(ab solute) 0.4 x10e3 /uL 0.1-0. 9 Not Available [facility] [address] [facility], [place], [address], 06/03/2024 07:08:53 06/02/19 25 06/02/2024 CBC WITH DIFFE RENTI AL/PL ATELE T eos (absolute) 0.3 x10e3 /uL 0.0-0. 4 Not Available [facility] [address] [facility], [place], [address], 06/03/2024 07:08:53 06/02/19 25 06/02/2024 CBC WITH DIFFE RENTI AL/PL ATELE T baso (absolute) 0.0 x10e3 /uL 0.0-0. 2 Not Available [facility] [address] [facility], [place], [address], 06/03/2024 07:08:53 06/02/1906/02/2024 CBC WITH DIFFE RENTI AL/PL ATELE T immature granulocytes 0 % notest ab. Not Available [facility] [address] [facility], [place], [address], 06/03/2024 07:08:53 01/06/02/2024 CBC WITH DIFFE RENTI AL/PL ATELE T immature grans (abs) 0.0 x10e3 /uL 0.0-0. 1 Not Available [facility] ([facility]) [address], [place], [address], 06/03/2024 07:08:53 02/27/20 24 02/27/2024 XR, chest , 2 view No observ ation record ed. [facility] [address], [place], [address], 03/01/2024 09:15:59 Result Notes None recorded. Problems Name Problem SNOMED Code Status Onset Date Resolution Date Notes Provider Name and Address Organization Details Recorded Time Hyperlipidemia 78808080 Active 2023 CHRISTIE Torres, [place] - [facility] 4 16:38:08 Anxiety 05491489 Active 2023 Cathleen Ivan MA null, [place] - [facility] 4 15:54:13 Pneumococcal vaccination declined 584780854 Active 2024 Peter Arreaga MD Attn: Shine g,[address] [facility], [place], [address], [place] - [facility] 5 14:36:48 Influenza vaccination declined 106351636 Active 2024 Peter Arreaga MD Attn: Shine g,[address] [place], [address], [place] - [facility] 5 14:36:48 Problem Notes None recorded. Procedures Surgical History Date Name Laterality Status Provider Name and Address Organization Details Recorded Time Eye Surgery completed EVA Hill [place] - [facility] 08/26/2023 15:51:54 Cholecystectomy completed EVA Hill [place] - [facility] 08/26/2023 15:52:02 extraction of wisdom tooth completed CHRISTIE Kee - [facility] 12/31/2023 16:11:27 Imaging Results Imaging Date Name Status LastModified by Organiz ation Details LastModified Time 02/27/2024 XR, chest, [address] [facility] [address], [place], [address], 03/01/2024 09:15:59 Procedure Notes None recorded. Medical Equipment None Reported. Allergies No known drug allergies Medications Name Sig Start Date Stop Date Status Note LastModified by Organization Details LastModified Time triazolam 0.25 mg tablet active Not Available Not Available Not Available azithromyci n 250 mg tablet TAKE 2 TABLETS (500 MG) BY ORAL ROUTE ONCE DAILY FOR 1 DAY THEN 1 TABLET (250 MG) BY ORAL ROUTE ONCE DAILY FOR 4 DAYS active Not Available Not Available No t Available hydrocodone 5 mg-acetamin ophen 325 mg tablet TAKE 1 TABLET BY MOUTH EVERY 5 HOURS NEEDED FOR PAIN active Not Available Not Available No t Available omeprazole 40 mg capsule,del ayed release TAKE 1 CAPSULE BY MOUTH DAILY active Not Available Not Available No t Available amoxicillin 500 mg tablet TAKE 1 TABLET BY MOUTH THREE TIMES DAILY STARTING AFTER SURGERY 04/26 completed Not Available Not Available Not Available lorazepam 1 mg tablet TAKE 1 TABLET BY MOUTH EVERY DAY NEEDED FOR ANXIETY active Not Available Not Available No t Available Shirley Allergy 180 mg tablet Take 1 tablet every day by oral route. active Not Available Not Available No t Available Vitals Date Recorded Body height Body mass index (BMI) Body weight Heart rate Oxygen saturation Oxygen saturation in Arterial blood by Pulse oximetry Heart rate Systolic blood pressure Diastolic blood pressure Systolic blood pressure Diastolic blood pressure Provider Name and Address Organization Details Last Updated DateTime 4 172.09 cm 31.9 kg/m2 90452.2 1 g 70 /min 98 % 98 % 67 /min 142 mm[Hg] 84 mm[Hg] 132 mm[Hg] 78 mm[Hg] EVA Hill [place] - [facility] 4 16:13:26 Date Recorded Body height Body mass index (BMI) Body weight Heart rate Oxygen saturation Oxygen saturation in Arterial blood by Pulse oximetry Systolic blood pressure Diastolic blood pressure Provider Name and Address Organization Details Last Updated DateTime 4 172.09 cm 30.8 kg/m2 84313.0 7 g 77 /min 97 % 97 % 130 mm[Hg] 68 mm[Hg] Karlie Polo [place] - [facility] 4 16:14:36 Date Recorded Body height Body mass index (BMI) Body weight Heart rate Oxygen saturation Oxygen saturation in Arterial blood by Pulse oximetry Systolic blood pressure Diastolic blood pressure Provider Name and Address Organization Details Last Updated DateTime 4 172.09 cm 30.5 kg/m2 12809.2 4 g 76 /min 95 % 95 % 114 mm[Hg] 70 mm[Hg] Leah Brambila CHRISTIE [facility] 4 10:51:15 Date Recorded Body height Body mass index (BMI) Body weight Heart rate Oxygen saturation Oxygen saturation in Arterial blood by Pulse oximetry Systolic blood pressure Diastolic blood pressure Provider Name and Address Organization Details Last Updated DateTime 5 172.09 cm 30.4 kg/m2 18539.3 7 g 76 /min 96 % 96 % 120 mm[Hg] 68 mm[Hg] Karlie Polo MA [facility] 5 16:19:39 Social History Question Answer Notes LastModified by Organizat ion Details LastModified Time Tobacco Smoking Status Never Smoker EVA Hill, [facility] [facility] 08/26/2023 15:49:57 Do You Have An Advance Directive? No Information not available 12/31/2023 What Is Your Level Of Alcohol Consumption? Occasional Information not available 12/31/2023 Are You Blind Or Do You Have Difficulty Seeing? No Information not available 12/31/2023 What Is Your Level Of Caffeine Consumption? Moderate Soda Information not available 12/31/2023 In The 14 Days Before Symptom Onset, Have You Had Close Contact With A Laboratory-confir med COVID-19 While That Case Was Ill? No Information not available 12/31/2023 In The 14 Days Before Symptom Onset, Have You Had Close Contact With A Person Who Is Under Investigation For COVID-19 While That Person Was Ill? No Information not available 12/31/2023 Have You Been To An Area Known To Be High Risk For COVID-19? No Information not available 12/31/2023 Are You Currently Employed? Yes Information not available 12/31/2023 Are You Deaf Or Do You Have Serious Difficulty Hearing? No Information not available 12/31/2023 What Type Of Diet Are You Following? REGULAR Information not available 12/31/2023 Are There Any Guns Present In Your Home? No Information not available 12/31/2023 What Was The Date Of Your Most Recent Tobacco Screening? 05/31/2024 Non Smoker Information not available 05/31/2024 What Is Your Relationship Status? Single Information not available 12/31/2023 Do You Use Your Seat Belt Or Car Seat Routinely? Yes Information not available 12/31/2023 Do You Have Smoke And Carbon Monoxide Detectors In Your Home? Yes Information not available 12/31/2023 Do You Feel Stressed (tense, Restless, Nervous, Or Anxious, Or Unable To Sleep At Night)? [id number] Information not available 12/31/2023 Do You Use Any Illicit Or Recreational Drugs? No Information not available 12/31/2023 Do You Use Sunscreen Routinely? Yes Information not available 12/31/2023 Has Tobacco Cessation Counseling Been Provided? No Information not available 12/31/2023 Do You Or Have You Ever Used Any Other Forms Of Tobacco Or Nicotine? No Information not available 12/31/2023 Sex: Male Functional Status Question Answer Note LastModified by Organization D etails LastModified Time Are you able to care for yourself? Yes Information n ot available 12/31/2023 What is your exercise level? None Information not available 12/31/2023 Mental Status None recorded. Family History Nothing Reported Notes:Patient does not know family history, me/rma Medical History Condition Response Muscle, Joint, or Bone Problems Y High Cholesterol Y Past Encounters Encounter ID Performer Location Encounter Start Date Encounter Closed Date Diagnosis/Indication Diagnosis SNOMED-CT Code Diagnosis ICD10 Code Diagnosis Note [id number] MD Shree Thao (Adult Med) [address] [place] [address]28[address] 0 08/26/2023 15:29:12 08/26/2023 16:46:44 Hyperlipidemia 89485310 E78.5 [id number] MD Shree Thao (Adult Med) [address] [place] [address] 73352-457 0 12/31/2023 15:50:40 12/31/2023 16:37:55 Hyperlipidemia 71522128 E78.5 Screening for malignant neoplasm of colon 344934135 Z12.11 [id number] Peter Arreaga MD [facility] [employer] [address] [place] [address] 04/26/2024 10:42:06 04/26/2024 11:30:16 Body mass index 30+ - obesity 153911149 Z68.30 Overweight 549989642 E66 .3 Chest pain 93063172 R07. 9 Anxiety 55319908 F41.9 Hyperlipidemia 46124546 E78.5 Long-term drug therapy 006733811 Z79.638 [id number] Peter Arreaga MD [facility] [employer] [address] [place] [address] 05/31/2024 16:02:08 05/31/2024 17:36:45 Body mass index 30+ - obesity 760335652 Z68.30 Obesity 326155201 E66.9 Anxiety 03161531 F41.9 Hyperlipidemia 95776079 E78.5 Chest pain 21004376 R07. 9 Influenza vaccination declined 551033545 Z28.21 Pneumococc al vaccination declined 711955843 Z28.21 Health Concerns Section Related Observation LastModified by Organization Detai ls LastModified Time None Recorded Concern Status LastModified by Organization Details LastModified Time None Recorded Advance Directives Directive N: Payers Encounter Date Sequence Insurance Name Policy Number Policy Valle Covered Member ID Valle Member ID Guarantor Name 08/26/2023 1 [employer] (PP[employer] Yaya Terrazas [id number] Yaya Terrazas 12/31/2023 1 [place] [id number] Yaya Terrazas [id number] Yaya Terrazas 04/26/2024 1 [place] [id number] Yaya Terrazas [id number] Yaya Terrazas 05/31/2024 1 [employer] [id number] Yaya Terrazas [id number] Yaya Terrazas Notes Date Note Type Note Provider Name and Address Organization Details Recorded Time 08/26/2023 text/html High cholesterol and arthritic complaints Peter Arreaga MD Attn: [address] [facility], [place], [address], [place] [facility] 08/31/2023 17:59:36 12/31/2023 text/html hyperlipidemia n eeds to be checked Peetr Arreaga MD Attn: [address] [facility], [place], [address], [place] [facility] 01/10/2024 14:28:10 04/26/2024 text/html had some chest p ain a month or so ago went to the emergency room just kind of went away on its own he has been taking some PPI that is seems to have helped a little bit anxiety is high he has got some bronchitis symptoms as well Peter Arreaga MD Attn: [address] [facility], [place], [address], [place] [facility] 05/08/2024 23:47:03 05/31/2024 text/html no stress test y et. Still having lot of anxiety from brother who was in hospice. GERD appears to be stable did not get his blood work done yet Peter Arreaga MD Attn: [address] [facility], [place], [address], [place] [facility] 06/06/2024 14:37:26
--- OUTSIDE RECORDS SUMMARY | 2024-06-18 08:08 | XMS_ITS | Clinical Summary ---
Author Organization [facility] Address [address] [place] [address] Care Team Providers Care Dna Sequencing Associate Name Role Phone Ashley Andujar MD Primary Care Provider [phone] Social History Tobacco Use Types Packs/Day Years Used Date Smoking Tobacco: Never Assessed Sex and Gender Information Value Date Recorded Sex Assigned at Not on file Legal Sex Male 6:47 PM CDT Gender Identity Not on file Sexual Orientation Not on file Plan of Treatment Health Maintenance Due Date Last Done Comments Colorectal Cancer Screening Colonoscopy (10 Years) 1961 Annual Physical 1964 Hepatitis C 1979 DTaP, Tdap and Td Vaccines ( 1 - Tdap) 1980 Zoster Vaccines (1 of 2) 2011 COVID-19 Vaccine (2023-2 5 season) 2024 Influenza Adult (#1) 2024 RSV Immunization or 60+ Years (1 - 1-dose 75+ series) 2036 Meningococcal B Vaccine Aged Out No l onger eligible based on patient's age to complete this topic Meningococcal Vaccine Aged Out No gus norberto eligible based on patient's age to complete this topic Pneumococcal Vaccine: Pediat rics (0 to 5 Years) and At-Risk Patients (6 to 64 Years) Aged Out No longer eligible b ased on patient's age to complete this topic RSV Immunizations Under 20 Months Aged Out No longer eligible based on patient's age to complete this topic Care Teams Dna Sequencing Associate Relationship Specialty Start Date End Date Ashley Andujar MD [address] [place] [id number] PCP - General 06/04/11
--- OUTSIDE RECORDS SUMMARY | 2024-06-18 08:09 | XMS_ITS | Data Portability ---
Author Organization [place] - [facility] [place], Main Office Address [address] [place] [address] Assessment Encounter Date Assessment Date Assessment LastModified by Organization Details LastModified Time 04/08/2023 04/08/[address] abdomen and pelvis follow-up after test Not available 04/12/2023 00:17:49 Plan of Treatment Reminders Order Date Submit Date Provider Last Modified By Organization Details Last Modified Time Details Appointments None recorded. Lab CMP, serum or plasma 2022 023 [facility] (Lab), [address] [place], [address], 3 17:13:23 CBC w/ auto diff 2022 023 [facility] (Lab), [address] [place], [address], 3 15:52:45 CBC w/ auto diff 2022 023 [facility] (Lab), [address] [place], [address], 3 09:42:51 lipase, serum or plasma 2022 023 [facility] (Lab), [address] [place], [address], 3 17:13:25 PSA, total, serum or plasma 2022 023 [facility] (Lab), [address] [place], [address], 3 17:19:23 lipid panel, serum 2022 023 [facility] (Lab), [address] [place], [address], 3 17:13:34 Referral None recorded. Procedures colonoscopy procedure (PROC) 2022 023 ambrosio Freeman MD, [address] [facility], [address], [place], [address], 4 11:27:26 Surgeries None recorded. Imaging CT, abdomen + pelvis, w/ contrast 2022 023 [facility] ([facility]), [address] [place], [address], 3 13:21:20 Medication Orders None recorded. Patient TargetsNo targets recorded. Patient InstructionsNo instructions recorded. Reason for Referral None Reported. Results Created Date Observation Date Name Description Value Unit Range Abnormal Flag Note LastModifiedBy Organization Detail LastModifiedTime 04/08/2004/08/2023 CBC/C OMPLE TE BLD COUNT W/DIF F white blood cells 9.5 x10'3 /uL 4.2-10 .8 Not Available [facility] (Lab) [address] [place], [address], 04/08/2023 15:52:45 04/08/20 23 04/08/2023 CBC/C OMPLE TE BLD COUNT W/DIF F red blood cells 5.73 x10'6 /uL 4.10-5 .80 Not Available [facility] (Lab) [address] [place], [address], 04/08/2023 15:52:45 04/08/20 23 04/08/2023 CBC/C OMPLE TE BLD COUNT W/DIF F hemoglobin 17.1 g/dL 13.2-1 7.0 high Not Available [facility] (Lab) [address] [place], [address], 04/08/2023 15:52:45 04/08/20 23 04/08/2023 CBC/C OMPLE TE BLD COUNT W/DIF F hematocrit 51.2 % 39.3-5 0.0 high Not Available [facility] (Lab) [address] [place], [address], 04/08/2023 15:52:45 04/08/20 23 04/08/2023 CBC/C OMPLE TE BLD COUNT W/DIF F mean red cell volume 89.4 fL 80.0-9 7.0 Not Available [facility] (Lab) [address] [place], [address], 04/08/2023 15:52:45 04/08/20 23 04/08/2023 CBC/C OMPLE TE BLD COUNT W/DIF F mean red cell hemoglobin 29.8 pg 27.0-3 3.0 Not Available [facility] (Lab) [address] [place], [address], 04/08/2023 15:52:45 04/08/20 23 04/08/2023 CBC/C OMPLE TE BLD COUNT W/DIF F mean RBC HGB concentratio n 33.4 g/dL 31.0-3 6.0 Not Available [facility] (Lab) [address] [place], [address], 04/08/2023 15:52:45 04/08/20 23 04/08/2023 CBC/C OMPLE TE BLD COUNT W/DIF F red cell distribution width 13.2 % 11.8-1 5.5 Not Available [facility] (Lab) [address] [place], [address], 04/08/2023 15:52:45 04/08/20 23 04/08/2023 CBC/C OMPLE TE BLD COUNT W/DIF F platelets 289 x10'3 /uL 150-40 0 Not Available [facility] (Lab) [address] [place], [address], 04/08/2023 15:52:45 04/08/20 23 04/08/2023 CBC/C OMPLE TE BLD COUNT W/DIF F mean platelet volume 11.0 fL 9.0-12 .4 Not Available [facility] (Lab) [address] [place], [address], 04/08/2023 15:52:45 04/08/20 23 04/08/2023 CBC/C OMPLE TE BLD COUNT W/DIF F neutrophils 69.4 % 39.0-7 2.0 Not Available [facility] (Lab) [address] [place], [address], 04/08/2023 15:52:45 04/08/20 23 04/08/2023 CBC/C OMPLE TE BLD COUNT W/DIF F lymphocytes 20.9 % 16.0-4 7.0 Not Available [facility] (Lab) [address] [place], [address], 04/08/2023 15:52:45 04/08/20 23 04/08/2023 CBC/C OMPLE TE BLD COUNT W/DIF F monocytes 5.7 % 5.0-12 .0 Not Available [facility] (Lab) [address] [place], [address], 04/08/2023 15:52:45 04/08/20 23 04/08/2023 CBC/C OMPLE TE BLD COUNT W/DIF F eosinophils 3.4 % 1.0-7. 0 Not Available [facility] (Lab) [address] [place], [address], 04/08/2023 15:52:45 04/08/20 23 04/08/2023 CBC/C OMPLE TE BLD COUNT W/DIF F basophils 0.3 % 0.0-2. 0 Not Available [facility] (Lab) [address] [place], [address], 04/08/2023 15:52:45 04/08/20 23 04/08/2023 CBC/C OMPLE TE BLD COUNT W/DIF F immature granulocytes 0.3 % 0.00-0 .50 Not Available [facility] (Lab) [address] [place], [address], 04/08/2023 15:52:45 04/08/20 23 04/08/2023 CBC/C OMPLE TE BLD COUNT W/DIF F neutrophils, absolute count 6.63 x10'3 /uL 1.5-8. 0 Not Available [facility] (Lab) [address] [place], [address], 04/08/2023 15:52:45 04/08/20 23 04/08/2023 CBC/C OMPLE TE BLD COUNT W/DIF F lymphocytes, absolute count 1.99 x10'3 /uL 1.07-3 .43 Not Available [facility] (Lab) [address] [place], [address], 04/08/2023 15:52:45 04/08/20 23 04/08/2023 CBC/C OMPLE TE BLD COUNT W/DIF F monocytes, absolute count 0.54 x10'3 /uL 0.29-0 .99 Not Available [facility] (Lab) [address] [place], [address], 04/08/2023 15:52:45 04/08/20 23 04/08/2023 CBC/C OMPLE TE BLD COUNT W/DIF F eosinophils, absolute count 0.32 x10'3 /uL 0.02-0 .53 Not Available [facility] (Lab) [address] [place], [address], 04/08/2023 15:52:45 04/08/20 23 04/08/2023 CBC/C OMPLE TE BLD COUNT W/DIF F basophils, absolute count 0.03 x10'3 /uL 0.01-0 .08 Not Available [facility] (Lab) [address] [place], [address], 04/08/2023 15:52:45 04/08/20 23 04/08/2023 CBC/C OMPLE TE BLD COUNT W/DIF F immature granulocytes ,absolute 0.03 x10'3 /uL 0.00-0 .05 Not Available [facility] (Lab) [address] [place], [address], 04/08/2023 15:52:45 04/08/20 23 04/08/2023 CBC/C OMPLE TE BLD COUNT W/DIF F nucleated red blood cells 0.0 % -0 Not Available [facility] (Lab) [address] [place], [address], 04/08/2023 15:52:45 04/08/20 23 04/08/2023 CBC/C OMPLE TE BLD COUNT W/DIF F NRBC# 0.00 x10'3 /uL Not Available [facility] (Lab) [address] [place], [address], 04/08/2023 15:52:45 04/08/20 23 04/08/2023 COMPR EHENS SNEHA METAB OLIC PANEL sodium 140 mmol/ L 137-14 5 Not Available [facility] (Lab) [address] [place], [address], 04/08/2023 17:13:23 04/08/20 23 04/08/2023 COMPR EHENS SNEHA METAB OLIC PANEL potassium 4.4 mmol/ L 3.5-5. 1 Not Available [facility] (Lab) [address] [place], [address], 04/08/2023 17:13:23 04/08/20 23 04/08/2023 COMPR EHENS SNEHA METAB OLIC PANEL chloride 102 mmol/ L 98-107 Not Available [facility] (Lab) [address] [place], [address], 04/08/2023 17:13:23 04/08/20 23 04/08/2023 COMPR EHENS SNEHA METAB OLIC PANEL carbon dioxide 29 mmol/ L 22-30 Not Available [facility] (Lab) [address] [place], [address], 04/08/2023 17:13:23 04/08/20 23 04/08/2023 COMPR EHENS SNEHA METAB OLIC PANEL anion gap 13.4 mmol/ L 14-22 low Not Available [facility] (Lab) [address] [place], [address], 04/08/2023 17:13:23 04/08/20 23 04/08/2023 COMPR EHENS SNEHA METAB OLIC PANEL glucose 113 mg/dL 70-99 high Not Available [facility] (Lab) [address] [place], [address], 04/08/2023 17:13:23 04/08/20 23 04/08/2023 COMPR EHENS SNEHA METAB OLIC PANEL BUN 13 mg/dL 8-19 Not Available [facility] (Lab) [address] [place], [address], 04/08/2023 17:13:23 04/08/20 23 04/08/2023 COMPR EHENS SNEHA METAB OLIC PANEL creatinine 0.99 mg/dL 0.66-1 .25 Not Available [facility] (Lab) [address] [place] [address], [address], 04/08/2023 17:13:23 04/08/20 23 04/08/2023 COMPR EHENS SNEHA METAB OLIC PANEL GFR >60 Refer ence Range : [place] ge GFR Healt hy Adult : >60 mL/mi n/1.7 3 m2 Chron ic Kidne y Disea se: 15-60 mL/mi n/1.7 3 m2 Kidne y Failu re: <15/m L/min /1.73 m2 www.n iddk. nih.g ov The MDRD study equat ion has not been valid ated in child dasha <18 years of age; pregn ant women ; the elder ly >85 years of age; or in some racia l or ethni c subgr oups, such as Hispa nics. Outsi de the valid ated anh eters , estim ated GFR is less accur ate, requi ring clini yuliya judgm ent on a case- by-ca se basis . Clini yuliya inter preta tion for other races and ages must be made by the clini nata. The MDRD study equat ion has not been valid ated for the evalu ation of serum creat inine relat ed to nutri nicolasa l statu s or medic ation usage . For perso ns <18 years of age, a pedia tric GFR calcu lator is avail able on the [facility] websi te: https ://uriel w.kid hunter.o rg/pr ofess ional s/kdo qi/gf r_cal culat or Not Available [facility] (Lab) [address] [place], [address], 04/08/2023 17:13:23 04/08/20 23 04/08/2023 COMPR EHENS SNEHA METAB OLIC PANEL alkaline phosphatase 64 U/L 38-126 Not Available [facility] (Lab) [address] [place], [address], 04/08/2023 17:13:23 04/08/20 23 04/08/2023 COMPR EHENS SNEHA METAB OLIC PANEL alanine aminotransfe rase 52 U/L 0-50 high Not Available [facility] (Lab) [address] [place], [address], 04/08/2023 17:13:23 04/08/20 23 04/08/2023 COMPR EHENS SNEHA METAB OLIC PANEL aspartate aminotransfe rase 64 U/L 15-46 high Not Available [facility] (Lab) [address] [place], [address], 04/08/2023 17:13:23 04/08/20 23 04/08/2023 COMPR EHENS SNEHA METAB OLIC PANEL bilirubin, total 0.70 mg/dL 0.20-1 .30 Not Available [facility] (Lab) [address] [place], [address], 04/08/2023 17:13:23 04/08/20 23 04/08/2023 COMPR EHENS SNEHA METAB OLIC PANEL calcium 9.6 mg/dL 8.4-10 .2 Not Available [facility] (Lab) [address] [place], [address], 04/08/2023 17:13:23 04/08/20 23 04/08/2023 COMPR EHENS SNEHA METAB OLIC PANEL total protein 8.6 g/dL 6.3-8. 2 high Not Available [facility] (Lab) [address] [place], [address], 04/08/2023 17:13:23 04/08/20 23 04/08/2023 COMPR EHENS SNEHA METAB OLIC PANEL albumin 4.4 g/dL 3.4-5. 0 Not Available [facility] (Lab) [address] [place], [address], 04/08/2023 17:13:23 04/08/20 23 04/08/2023 COMPR EHENS SNEHA METAB OLIC PANEL globulin 4.2 g/dL 2.6-4. 2 Not Available [facility] (Lab) [address] [place], [address], 04/08/2023 17:13:23 04/08/20 23 04/08/2023 COMPR EHENS SNEHA METAB OLIC PANEL A/G ratio 1.0 ratio 1.0-2. 0 Not Available [facility] (Lab) [address] [place], [address], 04/08/2023 17:13:23 04/08/20 23 04/08/2023 LIPAS E SERUM lipase 114 U/L 23-300 Not Available [facility] (Lab) [address] [place] [address], [address], 04/08/2023 17:13:25 04/08/20 23 04/08/2023 LIPID PANEL cholesterol 233 mg/dL 140-19 9 high NIH YEMI NSUS RECOM MENDA TION FOR LUAN STERO L: ADULT CHILD LOW RISK: <200 <170 BORDE RLINE : <200- 239 ----- HIGH RISK: >240 >200 Not Available [facility] (Lab) [address] [place] [address], [address], 04/08/2023 17:13:34 04/08/20 23 04/08/2023 LIPID PANEL triglyceride s 147 mg/dL 0-150 NIH YEMI NSUS REPOR T RECOM MENDA TION FOR TRIGL YCERI ALDO: ADULT CHILD LOW RISK: <150 ----- BODER LINE: 150-1 99 ----- HIGH RISK: >200 ----- Not Available [facility] (Lab) [address] [place], [address], 04/08/2023 17:13:34 04/08/20 23 04/08/2023 LIPID PANEL HDL cholesterol 35 mg/dL 40- low Not Available [facility] (Lab) [address] [place] [address], [address], 04/08/2023 17:13:34 04/08/20 23 04/08/2023 LIPID PANEL LDL cholesterol, calculated 169 mg/dL 0-130 high NIH YEIM NSUS REPOR T RECOM MENDA TIONS FOR LDL: ADULT CHILD LOW RISK <130 <110 (OPTI MAL LDL) <100 ----- BORDE RLINE : 130-1 59 ----- HIGH RISK: >160 >130 A TRIGL YCERI DE RESUL T >400 INVAL IDATE S THE CALCU LATIO N FOR LDL FRACT IONAT ION - THE LDL RESUL T WILL NOT BE REPOR TOÑA. Not Available [facility] (Lab) [address] [facility], [place], [address], 04/08/2023 17:13:34 04/08/20 23 04/08/2023 PSA SCREE N PSA medicare screen 8.31 NG/mL 0.00-4 .00 high Not Available [facility] (Lab) [address], [place], [address], 04/08/2023 17:19:22 04/24/20 23 04/24/2023 CT, abdom en + pelvi s, w/ contr ast [facility] [address], [place] [address] Patien t Name: DAREK MCCLENDON Access ion #: [id number] Sex: M : 1960 1 Dictat ed By: Jolly Cooley Attend ing Physic jim: JACINTA ARREAGA [facility] Physic jim: JACINTA ARREAGA Exam Date: 2022 08:12 AM Exam Name: CT ABDOME N PELVIS W Admitt ing Diagno sis(es ): Exam: CT abdome n and pelvis with contra st dated 2022 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 Compar berta Study: None availa ble at time of dictat ion. TECHNI QUE: A digita l fixed income trading vice president image was obtain ed. During the uneven tful, intrav enous admini strati on of contra st materi al, multis lice data acquis ition was obtain ed throug h the abdome n and pelvis . The data set was subseq uently recons tructe d into axial images . Images were review ed on a work statio n using a combin ation of axial and multip lanar using a variet y of window levels and settin gs. RADIAT ION DOSE: DLP 907.5m Gy.cm; CTDI 17.6 mGy. FINDIN GS: Visual ized lower thorax : Limite d imagin g of the lung bases demons trates no suspic ious pleura l or parenc hymal diseas e. Liver: Diffus e hypoat tenuat ion of the liver sugges tive of fatty infilt ration . Subcen timete r low-de nsity lesion in the right hepati c lobe favore d to repres ent a hepati c cyst. No suspic ious hepati c lesion s. Mildly nodula r liver surfac e. Gallbl adder: No eviden ce of cholel ithias is or gallbl adder wall thicke jeny. Biliar y system : There is no intrah epatic or extrah epatic bile duct dilata tion. Spleen : Normal in morpho logy and attenu ation. Pancre as: Normal in morpho logy and attenu ation. Page 1 [facility] [address] [address] Patien t Name: DAREK MCCLENDON Access ion #: [id number] Sex: M : 1960 1 Dictat ed By: Jolly Cooley Attend ing Physic jim: [facility] Physic jim: JACINTA ARREAGA Exam Date: 2022 08:12 AM Exam Name: CT ABDOME N PELVIS W Admitt ing Diagno sis(es ): Adrena l glands : Normal in morpho logy and attenu ation. Kidney s: The kidney s enhanc e symmet ricall y and are withou t suspic ious abnorm ality. Urinar y tract: The ureter s, as visual ized, are normal in course and calibe r. The bladde r is underd istend ed Pelvis : The prosta te is enlarg ed and hetero geneou s and measur es 5.6 cm. Perito neum: No signif icant ascite s. No pneumo perito neum. GI tract: No bowel wall thicke jeny or dilata tion. Enteri c contra st is visual ized. Scatte red coloni c divert iculos is in the descen ding and sigmoi d colon withou t eviden ce of acute divert iculit is. Normal append ix. Lymph nodes: There are no abnorm ally enlarg ed intra- abdomi nal or pelvic lymph nodes. Vascul ar struct ures:T he aorta and iliac vessel s are normal in course and calibe r. Muscul oskele luz elena: No acute osseou s abnorm ality. Soft tissue s: Small fat-co ntaini ng bilate ral inguin al hernia s, left greate r than right. Small fat-co ntaini ng umbili yuliya hernia . IMPRES VERONIQUE: 1. No acute abnorm ality in the abdome n or pelvis . 2. Hepati c steato sis. Mildly nodula r liver surfac e. Correl ate with liver functi on tests for chroni c liver diseas e. 3. Prosta tomega ly. All CT scans at this medica l facili ty are perfor med using dose modula tion techni ques as approp riate to a perfor med exam includ ing the follow ing: Automa toña exposu re contro l was utiliz ed; adjust ment of the MA and/or KV accord ing to patien t size; and use of iterat sneha recons tructi on techni que. Electr onical ly Signed by: Jolly Cooley at 2022 12:20: 02 PM Page 3 [facility] (Imaging) [address] [place], [address], 05/09/2023 13:16:23 Result Notes None recorded. Problems Name Problem SNOMED Code Status Onset Date Resolution Date Notes Provider Name and Address Organization Details Recorded Time Abdominal pain 22705410 Active 023 Not Available [facility] 3 07:10:29 Prostate specific antigen above reference range 719549374 Active 023 Not Available [facility] 3 07:10:29 Problem Notes None recorded. Procedures Surgical History Date Name Laterality Status Provider Name and Address Organization Details Recorded Time Lasik completed Not Available [facility] 06/2022 01:47:34 Imaging Results Imaging Date Name Status LastModified by Organiz ation Details LastModified Time 04/24/2023 CT, abdomen + pelvis, w/ contrast completed [facility] ([facility]) [address] [place], [address], 05/09/2023 13:16:23 Procedure Notes None recorded. Medical Equipment None Reported. Allergies No known drug allergies Medications Name Sig Start Date Stop Date Status Note LastModified by Organization Details LastModified Time loperamide 2 mg capsule 04/01 completed Not Available Not Available Not Available ibuprofen 800 mg tablet TAKE 1 TABLET BY MOUTH EVERY 8 HOURS NEEDED FOR PAIN 04/01 completed Not Available Not Available Not Available amoxicillin 500 mg tablet TAKE 1 TABLET BY MOUTH EVERY 8 HOURS UNTIL GONE 04/01 completed Not Available Not Available Not Available lorazepam 1 mg tablet TAKE 1 TABLET BY MOUTH TWICE DAILY NEEDED 04/01 completed Not Available Not Available Not Available dicyclomine 10 mg capsule TAKE 1 CAPSULE BY MOUTH FOUR TIMES DAILY 04/01 completed Not Available Not Available Not Available Vitals Date Recorded Body mass index (BMI) Body height Heart rate Body temperature Body weight Systolic blood pressure Diastolic blood pressure Provider Name and Address Organization Details Last Updated DateTime 3 29.8 kg/m2 172.72 cm 67 /min 98.5 [degF] 29976.1 g 122 mm[Hg] 70 mm[Hg] Not Available [facility] 3 01:47:44 Date Recorded Body weight Body mass index (BMI) Body height Body temperature Heart rate Systolic blood pressure Diastolic blood pressure Provider Name and Address Organization Details Last Updated DateTime 3 22396.2 5 g 30.9 kg/m2 172.72 cm 97.7 [degF] 71 /min 116 mm[Hg] 74 mm[Hg] EVA Vogt [place] [facility] [employer] [facility] 3 12:23:43 Social History Question Answer Notes LastModified by Organizat ion Details LastModified Time Tobacco Smoking Status Never Smoker Not Available [facility] 07/04/2022 01:47:15 Do You Have An Advance Directive? No [id number] Information not available 07/04/2022 What Is Your Level Of Alcohol Consumption? Occasional [id number] Information not available 07/04/2022 What Is Your Level Of Caffeine Consumption? Occasional [id number].50412 [id number] Information not available 07/04/2022 In The 14 Days Before Symptom Onset, Have You Had Close Contact With A Laboratory-confi rmed COVID-19 While That Case Was Ill? No [id number] Information not available 07/04/2022 In The 14 Days Before Symptom Onset, Have You Had Close Contact With A Person Who Is Under Investigation For COVID-19 While That Person Was Ill? No [id number] Information not available 07/04/2022 What Type Of Diet Are You Following? REGULAR [id number].14423 [id number] Information not available 07/04/2022 What Is The Highest Grade Or Level Of School You Have Completed Or The Highest Degree You Have Received? 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 No MIGRATION.66046 [id number] Information not available 07/04/2022 What Is The Fluoride Status Of Your Home? Unknown MIGRATION.23347 [id number] Information not available 07/04/2022 Are There Any Guns Present In Your Home? Yes MIGRATION.27345 23451 Information not available 07/04/2022 Do You Use Insect Repellent Routinely? No MIGRATION.05841 [id number] Information not available 07/04/2022 Where Do You Live? [place] MIGRATION.35165 04106 Information not available 07/04/2022 Do You Have A Medical Power Of Corn Shucker? No MIGRATION.02100 67243 Information not available 07/04/2022 What Was The Date Of Your Most Recent Tobacco Screening? 04/08/2023 [email or web address] Information not available 04/08/2023 Have You Ever Been Counseled For Unhealthy Alcohol Use? No MIGRATION.20902 [id number] Information not available 07/04/2022 Do You Have Any Pets? No MIGRATION.28061 91249 Information not available 07/04/2022 What Is Your Relationship Status? Single MIGRATION.55314 35733 Information not available 07/04/2022 Do You Have Smoke And Carbon Monoxide Detectors In Your Home? Yes MIGRATION.57823 46918 Information not available 07/04/2022 Are You Passively Exposed To Smoke? No MIGRATION.36347 42285 Information not available 07/04/2022 Are There Any Smokers In Your House? No MIGRATION.83846 49573 Information not available 07/04/2022 What Types Of Sporting Activities Do You Participate In? Weights MIGRATION.31669 [id number] Information not available 07/04/2022 Do You Feel Stressed (tense, Restless, Nervous, Or Anxious, Or Unable To Sleep At Night)? [id number] MIGRATION.37063 62414 Information not available 07/04/2022 Do You Use Any Illicit Or Recreational Drugs? No MIGRATION.04187 00723 Information not available 07/04/2022 Do You Use Sunscreen Routinely? No MIGRATION.81908 20843 Information not available 07/04/2022 Has Tobacco Cessation Counseling Been Provided? No MIGRATION.44942 48955 Information not available 07/04/2022 Have You Recently Traveled Abroad? No MIGRATION.92495 73349 Information not available 07/04/2022 Do You Have Any Dietary Restrictions? No MIGRATION.01959 61009 Information not available 07/04/2022 Do You Or Have You Ever Used Any Other Forms Of Tobacco Or Nicotine? No MIGRATION.62878 26721 Information not available 07/04/2022 Sex: Unknown Functional Status Question Answer Note LastModified by Organizat ion Details LastModified Time What is your exercise level? Moderate [id number] Information not available 07/04/2022 Mental Status None recorded. Family History Relationship Description Onset Age of this Age Resolved Age Notes LastModified by Organization Details LastModified Time Mother Family history of malignant neoplasm lung cancer [id number] Not available 07/04/2022 01:47:35 Father Family history of malignant neoplasm lung cancer [id number] Not available 07/04/2022 01:47:35 Medical History Condition Response ANXIETY DISORDER Y NO SIGNIFICANT PAST MEDICAL HISTORY N HAVE YOU BEEN HOSPITALIZED OR SEEN IN [facility] IN THE PAST YEAR ? N Past Encounters Encounter ID Performer Location Encounter Start Date Encounter Closed Date Diagnosis/Indication Diagnosis SNOMED-CT Code Diagnosis ICD10 Code Diagnosis Note [id number] [facility] [address] [facility], [address] [place] [address] 04/01/2022 00:00:00 05/19/2022 17:29:15 [id number] Anish Arreaga MD [facility] [facility] [address], [facility] [address] [place] [address] 04/08/2023 11:10:59 04/08/2023 13:01:39 Abdominal pain 53614942 R10.9 Screening for malignant neoplasm of prostate 102802672 Z12.5 Screening for cardiovascular system disease 486857424 Z13.6 Health Concerns Section Related Observation LastModified by Organization Detai ls LastModified Time None Recorded Concern Status LastModified by Organization Details LastModified Time None Recorded Advance Directives Directive N: Payers Encounter Date Sequence Insurance Name Policy Number Policy Valle Covered Member ID Valle Member ID Guarantor Name 04/08/2023 1 [employer] (O) Darek Terrazas [id number] Darek Terrazas Notes Date Note Type Note Provider Name and Address Organization Details Recorded Time 04/08/2023 text/html Some abdominal pains been in the ruiz diffuse on for couple weeks does wake him up at night seems to make it better nothing seems to make Anish Arreaga MD [address], [place], [address], [place] [facility] 04/12/2023 00:20:44
--- OUTSIDE RECORDS SUMMARY | 2024-06-18 08:09 | XMS_ITS | Clinical Summary ---
Author Organization [facility] Address [address] [place] [address] Phone Care Team Providers Care Children'S Literature Professor Name Role Phone Anish Arreaga MD Primary Care Provider [phone] Roney Vallejo MD Unavailable [phone] Allergies No known active allergies Medications No known medications Active Problems No known active problems Family History Medical History Relation Name Comments Cancer Brother Lung Cancer Father Prostate Cancer Father Liver Cancer Maternal Grandmother Chronic Obstructive Pulmonary Disease Mother Relation Name Status Comments Brother Alive Father Maternal Grandmother Mother Social History Tobacco Use Types Packs/Day Years Used Date Smoking Tobacco: Never Smokeless Tobacco: Never Tobacco Cessation:Counseling Given: No Alcohol Use Standard Drinks/Week Comments Yes 0 (1 standard drink = 0.6 oz pur e alcohol) Rare Sexually Active Control Partners Comments Not Currently Sex and Gender Information Value Date Recorded Sex Assigned at Not on file Legal Sex Male 9:23 AM [employer] Gender Identity Not on file Sexual Orientation Not on file Last Filed Vital Signs Vital Sign Reading Time Taken Comments Blood Pressure 181/92 08/11/2023 8:33 AM CDT Pulse 71 08/11/2023 8:33 AM CDT Temperature 36.7 C (98 F) 08/11/2023 8:33 AM CDT Respiratory Rate 19 08/11/2023 8:33 AM CDT Oxygen Saturation 99% 08/11/2023 8:33 AM CDT Inhaled Oxygen Concentration - - Weight 92.5 kg (204 lb) 08/11/2023 8:33 AM CDT Height 172.7 cm (5' 8 ) 08/11/2023 8:33 AM CDT Body Mass Index 31.02 08/11/2023 8:33 AM CDT Plan of Treatment Health Maintenance Due Date Last Done Comments Hepatitis C Virus (HCV) Screening 1961 TdaP Immunization 1961 Colonoscopy 2006 Colorectal Cancer Screening 2006 Cologuard 2011 Immunochemical Fecal Occult Blood 2011 Pneumococcal Immunization (5 0+ years) (1 of 1 - PCV) 2011 Zoster Immunization (1 of 2) 2011 Influenza Immunization (#1) 2024 SARS-COV-2 Immunization ( - 2023-25 season) 2024 Respiratory Syncytial Virus (RSV) Immunization (Adult) (1 - 1-dose 75+ series) 2036 PSA Discussion Completed 07/07/2023 Hepatitis B Immunization Aged Out No longer eligible based on patient's age to complete this topic Meningococcal Immunization (ACWY) Aged Out No longer eligible based on patient's age to complete this topic Rotavirus Immunization Aged Out No lo nger eligible based on patient's age to complete this topic Procedures Procedure Name Priority Date/Time Associated Diagnosis Comments PSA DIAGNOSTIC,TOTAL Routine 07/07/2023 10:58 AM [employer] Elevated PSA from Last 3 Months or Most Recently Relevant to Health Maintenance Results * PSA DIAGNOSTIC,TOTAL (07/07/2023 10:58 AM [employer]) PSA, TOTAL (PROSTATIC SPECIFIC ANTIGEN) 3.60 <4.00 ng/mL 07/07/2023 12:35 PM [employer] [facility] Blood Venipuncture / Unknown 07/07/2023 10:58 AM [employer] 07/07/2023 11:30 AM [employer] Narrative [facility] - 07/07/2023 12:35 PM [employer] PSA NOTE: The PSA value should be used in conjunction with information available from clinical evaluation and other diagnostic procedures. The [employer]ell[employer] Total PSA assay is a Chemiluminescent Microparticle Immunoassay (CMIA) for the quantitative determination of total PSA (both free PSA and PSA complexed to [id number]) in human serum. Total PSA values obtained with different assay methods, including Bryan PSA assays, cannot be used interchangeably. Roney Vallejo MD CHEMISTRY ORDERABLES Fi nal Result [facility] [address] [place] [address] from Last 3 Months or Most Recently Relevant to Health Maintenance Insurance [employer] Care Teams Children'S Literature Professor Relationship Specialty Start Date End Date Anish Arreaga MD PCP - General Internal Medicine 04/24/23 Roney Vallejo MD [address] [facility], [address] [address] Consulting Physician Urology 07/07/23
== END 2024-06-18 08:05 | disposition home or self-care (01) ==
PROVIDERS: PCP Internal Medicine; Visit Provider Internal Medicine
DX: R07.9 Chest pain, unspecified (principal)
CPT/HCPCS: 78452; 93017; A9502; J2785